=== PATIENT | male | born 1965 | race African-American/Black ===

== ENCOUNTER 2017-01-13 14:50 | Emergency (ER) | payer OTHER ==
[~2017-01-13] VITALS: Ht 190.5 cm; Wt 97.5 kg
[2017-01-13] MEDS ORDERED: CEFTRIAXONE SODIUM 1 G/VIAL IM ONE (15:30)
[2017-01-13 15:55] LABS: CLARITY URINE CLOUDY (CLEAR); COLOR URINE YELLOW (YELLOW); GLUCOSE URINE NEGATIVE (NEGATIVE); KETONES URINE NEGATIVE (NEGATIVE); LEUKOCYTE ESTERASE URINE 3+ (NEGATIVE); NITRITE URINE POSITIVE (NEGATIVE); OCCULT BLOOD URINE 2+ (NEGATIVE); PH URINE 5.5 (4.5-8.0); PROTEIN URINE 2+ (NEGATIVE); SPECIFIC GRAVITY URINE 1.018 (1.005-1.030)
[2017-01-13] MEDS ORDERED: LIDOCAINE HCL 1% 20ML VIAL (Pyxis) INJ INFIL ONE (16:00)
[2017-01-13 16:16] LABS: HEMATOCRIT. 35.1 % (42.0-52.0); HEMOGLOBIN. 12.3 g/dL (14.0-18.0); MEAN CORPUSCULAR HEMOGLOBIN 31.2 pg (28.0-32.0); MEAN CORPUSCULAR VOLUME 88.7 fL (80.0-94.0); MEAN PLATELET VOLUME 6.8 fl (7.4-10.4); PLATELET 141 x1000/uL (130-400); RED BLOOD CELL COUNT 3.96 mill/uL (4.7-6.1); RED CELL DISTRIBUTION WIDTH 14.1 % (11.6-14.6)
[2017-01-13 16:17] LABS: CHLORIDE 104 mEq/L (98-107)
[2017-01-13 16:26] LABS: CARBON DIOXIDE 27 mEq/L (21-32)
[2017-01-13 16:40] LABS: PLATELET ESTIMATE NORMAL
[2017-01-13 17:10] VITALS: BP 123/64
== END 2017-01-13 17:12 | disposition home or self-care (01) ==
LOC: ER 15:29
DX: N39.0 Urinary tract infection, site not specified (principal); R80.9 Proteinuria, unspecified
CPT/HCPCS: 36415; 80053; 81001; 85025; 96372; 99284; J0696; J3490; Z7610

== ENCOUNTER 2017-01-30 11:24 | Emergency (ER) | payer OTHER ==
[2017-01-30 14:17] VITALS: BP 113/72
[2017-01-30 15:18] LABS: CLARITY URINE CLOUDY (CLEAR); COLOR URINE YELLOW (YELLOW); GLUCOSE URINE NEGATIVE (NEGATIVE); KETONES URINE NEGATIVE (NEGATIVE); LEUKOCYTE ESTERASE URINE 3+ (NEGATIVE); NITRITE URINE POSITIVE (NEGATIVE); OCCULT BLOOD URINE 3+ (NEGATIVE); PH URINE 5.5 (4.5-8.0); PROTEIN URINE 2+ (NEGATIVE); SPECIFIC GRAVITY URINE 1.015 (1.005-1.030); UROBILINOGEN URINE 0.2 E.U./dL (0.2-1.0)
== END 2017-01-30 16:32 | disposition home or self-care (01) ==
LOC: ER 15:21
DX: N39.0 Urinary tract infection, site not specified (principal)
CPT/HCPCS: 81001; 87077; 87086; 87186; 99284